=== PATIENT | male | born 1955 | race Caucasian/White ===

== ENCOUNTER 2016-11-29 18:53 | Outpatient (CLI) | payer OTHER ==
--- NOTE | 2016-11-30 10:15 | Ultrasound Report ---
AORTA DUPLEX: 11/29/2016 CLINICAL INDICATION: Lower extremity pain. TECHNIQUE: Real-time sonographic vascular imaging was performed by the tobacco packer through the aorta utilizing both color-flow and Doppler spectral analysis. Multiple advertising sales representative static images were s aved for review. FINDINGS: The abdominal aorta measures 2.2 cm proximally, 2.1 cm in the mid portion, and 1.6 cm dist ally. The iliacs are normal in caliber. Mild calcified plaquing is present. IMPRESSION: NO EVIDENCE OF A HEMODYNAMICALLY SIGNIFICANT STENOSIS. MILD CALCIFIED PLAQUING. JOB #: [id number] EXT JOB #:[id number]
--- NOTE | 2016-11-30 11:44 | Ultrasound Report ---
BILATERAL LOWER EXTREMITY ARTERIAL DUPLEX: 11/29/2016 CLINICAL INDICATION: Lower extremity pain. TECHNIQUE: Real-time sonographic vascular imaging was performed by the steel heater through the lower extremities utilizing both color-flow and Doppler spectral analysis. Multiple international representative static images were saved for review. RIGHT SIDE SITE [employer] STEN PUBLIC HEALTH REPRESENTATIVE 201 triphasic PSFA 57 monophasic MSFA 29 monophasic DSFA 56 monophasic PFA 116 triphasic POP 15.9 monophasic ROSS 28.3 monophasic POLYMER ENGINEER 10.5 monophasic PER 9.4 monophasic DPA 13.3 monophasic LEFT SIDE SITE [employer] PUBLIC HEALTH REPRESENTATIVE 126 biphasic PSFA 55 monophasic MSFA 15 monophasic DSFA 105 monophasic PFA 187 triphasic POP 20.4 monophasic ROSS 15.8 monophasic POLYMER ENGINEER 15.9 monophasic PER 7.4 monophasic DPA 10.3 monophasic TECHNIQUE: Real-time scanning was performed. FINDINGS: RIGHT LEG: There is velocity elevation in the right common femoral artery, compatible with a hemodynamically significant stenosis. There is occlusion of the right distal superficial femoral artery, with collateral reconstitution. Monophasic runoff is noted to the right foot. LEFT LEG: There is calcified plaquing in the left common femoral artery, with a biphasic waveform, suggestive of a hemodynamically significant stenosis. There is occlusion of the distal left superficial femoral artery, with collateral reconstitution. There is monophasic runoff to the left foot. IMPRESSION: BILATERAL COMMON FEMORAL STENOSES AND SUPERFICIAL FEMORAL OCCLUSIONS , WITH COLLATERAL RECONSTITUTION BILATERALLY. BILATERAL MONOPHASIC RUNOFF TO THE FEET. MTDD
== END 2016-11-29 18:54 | disposition home or self-care (01) ==
LOC: DI 18:53
PROVIDERS: ATTEND Specialist
DX: I70.0 Atherosclerosis of aorta (principal); I77.1 Stricture of artery
CPT/HCPCS: 93925; 93979